=== PATIENT | male | born 1985 | race Caucasian/White ===

== ENCOUNTER 2021-11-20 11:02 | Emergency (ER) | payer OTHER ==
[2021-11-20] MEDS ORDERED: DOXYCYCLINE HY100 M2 PO (13:14)
[2021-11-20] MEDS ORDERED: BACTRIM DS TAB1 EAC1 PO (13:14)
== END 2021-11-20 13:31 | disposition home or self-care (01) ==
LOC: FER 11:02
DX: L03.116 Cellulitis of left lower limb (principal); L03.111 Cellulitis of right axilla; S09.90XA Unspecified injury of head, initial encounter; R11.0 Nausea; F17.200 Nicotine dependence, unspecified, uncomplicated; W22.8XXA Striking against or struck by other objects, initial encounter
CPT/HCPCS: 70450